=== PATIENT | female | born 1985 | race Caucasian/White ===

== ENCOUNTER 2017-09-12 20:26 | Emergency (ER) | payer OTHER ==
[~2017-09-12] VITALS: Ht 165.1 cm; Wt 124.9 kg
[2017-09-12 20:48] LABS: APPEARANCE SL.HAZY ((CLEAR)); BILIRUBIN NEGATIVE; BLOOD NEGATIVE; COLOR YELLOW ((YELLOW)); GLUCOSE (STRIP) NEGATIVE; KETONES NEGATIVE; LEUKOCYTES MODERATE; NITRITE NEGATIVE; PROTEIN (STRIP) NEGATIVE; SPECIFIC GRAVITY 1.023 (1.000-1.030); UROBILINOGEN 0.2 MG/DL (0.2-1.0)
[2017-09-12 20:50] LABS: HEMATOCRIT 41.3 % (36.0-46.0); HEMOGLOBIN 13.8 G/DL (11.9-15.5); MCH 29.9 PG (29.0-34.0); MCHC 33.4 G/DL (30.0-36.0); MCV 89.6 FL (83-99); PLATELET COUNT 365 K/uL (156-360); RBC DIS.WIDTH-CV 13.8 % (11.8-14.6); RBC DIS.WIDTH-SD 45.3 % (39-53); RED BLOOD COUNT 4.61 M/uL (3.80-5.20); WHITE BLOOD COUNT 12.2 K/uL (4.1-10.2)
[2017-09-12 20:51] LABS: BACTERIA RARE /HPF; EPITHELIAL CELLS 2+ /HPF; MUCUS TRACE /LPF; UCUL ADDED? YES
[2017-09-12 20:57] LABS: ALBUMIN 4.3 g/dL (3.2-4.8)
[2017-09-12 20:58] LABS: CHLORIDE 104 mEq/L (99-109); POTASSIUM 4.1 mEq/L (3.7-5.4); SODIUM 139 mEq/L (136-147)
[2017-09-12 21:00] LABS: GLUCOSE 105 mg/dL (70-99); TOTAL PROTEIN 7.7 g/dL (6.4-8.3)
[2017-09-12 21:02] LABS: TOTAL BILIRUBIN 0.3 mg/dL (0.0-1.0)
[2017-09-12 21:03] LABS: ALKALINE PHOSPHATASE 52 IU/L (3-129)
[2017-09-12 21:04] LABS: CREATININE 0.8 mg/dL (0.6-1.3); GFR ESTIMATE (CALCULATED) > 59 mL/min/
[2017-09-12 21:05] LABS: AST (GOT) 16 IU/L (2-34); UREA NITROGEN (BUN) 13 mg/dL (9-23)
[2017-09-12 21:07] LABS: ALT (GPT) 19 IU/L (3-49); LIPASE 13 U/L (1.0-51.0)
[2017-09-12 21:13] LABS: QUANTITATIVE HCG < 4.0 MIU/ML
[2017-09-12] MEDS ORDERED: BIRTH CONTROL PO (23:13)
[2017-09-12] MEDS ORDERED: INDERAL20 MG PO (23:14)
[2017-09-13] MEDS ORDERED: MOTRIN800 MG PO (00:02)
[2017-09-13] MEDS ORDERED: SKELAXIN800 MG PO (00:02)
[2017-09-13 00:43] VITALS: BP 153/83
== END 2017-09-13 00:45 | disposition home or self-care (01) ==
LOC: EME 20:26
DX: S29.012A Strain of muscle and tendon of back wall of thorax, initial encounter (principal); X58.XXXA Exposure to other specified factors, initial encounter; Y93.H1 Activity, digging, shoveling and raking; R07.9 Chest pain, unspecified; Z88.0 Allergy status to penicillin; Z88.1 Allergy status to other antibiotic agents; Z79.3 Long term (current) use of hormonal contraceptives
CPT/HCPCS: 80053; 81003; 83690; 84702; 85027; 87086; 99281; 99284; J1885